=== PATIENT | male | born 1980 | race Two or more races ===

== ENCOUNTER 2020-07-30 08:38 | Emergency (ER) | payer BC ==
[~2020-07-30] VITALS: Ht 182.9 cm; Wt 89.5 kg
[2020-07-30 08:44] VITALS: Ht 182.9 cm; Wt 89.5 kg
[2020-07-30] MEDS ORDERED: TYLENOL W/CODEIN5 ML PO (09:01)
[2020-07-30] MEDS ORDERED: PROAIR HFA8.5 G1 INH (09:01)
[2020-07-30] MEDS ORDERED: ZITHROMAX TRI-500 MG PO (09:01)
[2020-07-30 09:16] VITALS: BP 114/78
== END 2020-07-30 09:33 | disposition home or self-care (01) ==
LOC: D.ER 08:38
DX: J20.9 Acute bronchitis, unspecified (principal); Z72.0 Tobacco use; R06.02 Shortness of breath